=== PATIENT | male | born 1935 | race Caucasian/White ===

== ENCOUNTER 2022-06-24 08:11 | Outpatient (CLI) | payer MEDICARE ==
[2022-06-24] MEDS ORDERED: Magnevist 469MG/ML 20 ML VIAL ONE (12:10)
== END 2022-06-24 08:12 | disposition home or self-care (01) ==
LOC: TBSIIMAG 08:11
PROVIDERS: ATTEND Urology
DX: R97.20 Elevated prostate specific antigen [PSA] (principal); R93.89 Abnormal findings on diagnostic imaging of other specified body structures
CPT/HCPCS: 72197; A9579

== ENCOUNTER 2022-09-22 09:23 | Outpatient (CLI) | payer MEDICARE | END 2022-09-22 09:24 | disposition home or self-care (01) | LOC: NM 09:23 | PROVIDERS: ATTEND Urology | DX: C61 Malignant neoplasm of prostate (principal); R93.0 Abnormal findings on diagnostic imaging of skull and head, not elsewhere classified | CPT/HCPCS: 78306; A9503 ==

== ENCOUNTER 2023-12-30 08:59 | Outpatient (CLI) | payer MEDICARE | END 2023-12-30 09:00 | disposition home or self-care (01) | LOC: MRI 08:59 | PROVIDERS: ATTEND Internal Medicine Gastroenterology | DX: K58.9 Irritable bowel syndrome, unspecified (principal); K86.89 Other specified diseases of pancreas; N28.1 Cyst of kidney, acquired; Z86.010 Personal history of colon polyps | CPT/HCPCS: 74183; 82565 ==